=== PATIENT | female | born 1990 | race Caucasian/White ===

== ENCOUNTER → 2016-09-04 | Outpatient (CLI) | payer BC, OTHER ==
[2016-09-08 13:39] LABS: CHLAMYDIA TRACH RNA*** NOT DETECTED (NOT DETECTED); GC (NEIS GONORRHOEAE)RNA** NOT DETECTED (NOT DETECTED)
== END | disposition home or self-care (01) ==
LOC: C.LABSPEC 18:04
PROVIDERS: ATTEND Obstetrics & Gynecology
DX: Z01.419 Encounter for gynecological examination (general) (routine) without abnormal findings (principal); N89.8 Other specified noninflammatory disorders of vagina

== ENCOUNTER → 2017-10-08 | Outpatient (CLI) | payer OTHER | END | disposition home or self-care (01) | LOC: C.PAPS 11:45 | PROVIDERS: ATTEND Physician Assistant | DX: Z12.4 Encounter for screening for malignant neoplasm of cervix (principal); Z11.51 Encounter for screening for human papillomavirus (HPV) ==

== ENCOUNTER 2022-12-22 05:57 | Inpatient (IN) ==
[2022-12-22] MEDS ORDERED: LIDOCAINE 1% LOCAL 20 ML VIAL INFIL PRN (06:36)
[2022-12-22] MEDS ORDERED: OXYTOCIN 30 UNITS/500 ML BAG IV PRN ×3 (06:36→16:06)
[2022-12-22 07:05] LABS: Hematocrit (blood only) 35.7 % (37.0-47.0); Hemoglobin 12.2 g/dl (12.0-16.0); Mean Corpuscular Hemoglobin 28.3 pg (25.0-34.0); Mean Corpuscular Hgb Conc 34.2 g/dL (32.0-36.0); Mean Corpuscular Volume 82.8 fL (80.0-100.0); Mean Platelet Volume 11.7 fL (9.4-12.4); Platelet Count 143 K/uL (130-400); RDW Coefficient of Variation 14.1 % (11.5-14.5); RDW Standard Deviation 41.8 fL (36.4-46.3); Red Blood Count 4.31 M/uL (4.20-5.40); White Blood Count 11.79 K/ul (4.8-10.8)
[2022-12-22] MEDS ORDERED: ePHEDrine sulfate 50 MG/ML AMP ONE (07:48)
[2022-12-22] MEDS ORDERED: SODIUM CHLORIDE 0.9% PF INJ 10 ML VIAL ONE (07:49)
[2022-12-22] MEDS ORDERED: LIDOCAINE 2%/EPINEPHRINE 1:200,000 20 ML PF ONE (07:49)
[2022-12-22] MEDS ORDERED: fentaNYL citrate PF 100 MCG/2 ML VIAL ONE (07:49)
[2022-12-22] MEDS ORDERED: BUPIVACAINE 0.25% PF 30 ML VIAL ONE (07:49)
[2022-12-22] MEDS ORDERED: fentaNYL 2MCG/ML ROPIVACAINE 1.25MG/ML 100 ML BAG EPI ONE (07:50)
[2022-12-22] MEDS: LACTATED RINGER'S 1,000 ML IV PRN ×2 (07:55→09:25)
--- NOTE | 2022-12-22 09:07 | Anesthesiology Consultation ---
Date of Service December 22, 2022 Assessment & Plan Chart Review Chart Review: Acceptable Risk for Surgery, Patient NOT seen in Pre Admission Testing and Acceptable Risk for Labor Epidural Consults Requested none ASA ASA3 Proposed Anesthesia Anesthesia Type: Labor Epidural and CSE History Height/Weight Height: 5 ft 4 in Weight: 110.223 kg Allergies Allergy/AdvReac Type Severity Reaction Status Date / Time No Known Allergies Allergy Verified 12/22/22 06:15 Medications Home Medications Medication Instructions Recorded Confirmed Last Taken 1 tab PO DAILY 11/14/21 12/05/22 12/21/22 Low-Dose Aspirin 81 mg PO 1XD 12/05/22 12/05/22 12/21/22 Active Medications Generic Name Dose Route Start Last Admin Trade Name Freq PRN Reason Stop Dose Admin Lactated Ringer's 1,000 mls @ 125 mls/hr 12/22/22 06:36 12/22/22 08:40 Lr IV 12/24/22 06:35 125 mls/hr .Q8H PRN Infusion L&D Protocol Protocol Past Medical History Medical History Anxiety History of broken finger left index finger morbid obesity anemia Exercise / Class Metabolic Activity II 4-5 Yardwork/Stairs/Walk up hill Past Surgical History Surgical History History of wisdom tooth extraction Past Anesthesia History No Hx of Anesthesia Complications and No Family Hx of Anesthesia Complications History of PONV No Hx of PONV and No Hx of Motion Sickness Social History Smoking Status: Never smoker Do You Dip or Chew Tobacco: No Hx Alcohol Use: No alcohol intake frequency: holidays/special occasions only Hx Substance Use: No substance use type: does not use Physical Exam Vital Signs Last Vital Signs Temp 36.9 C 12/22/22 07:15 Pulse 102 H 12/22/22 07:15 Resp 18 12/22/22 07:15 BP 120/72 12/22/22 07:15 Testing Laboratory Results 12/22/22 06:47 Blood Type O Positive 12/22/22 06:47 Antibody Screen NEGATIVE 12/22/22 06:47
[2022-12-22] MEDS ORDERED: ROPIVACAINE 0.5% PF 5 MG/ML 20 ML VIAL EPI PRN (09:47)
[2022-12-22] MEDS ORDERED: BUPIVACAINE 0.25% PF 30 ML VIAL EPI PRN (09:47)
[2022-12-22] MEDS ORDERED: SODIUM CHLORIDE 0.9% PF INJ 10 ML VIAL EPI PRN (09:47)
[2022-12-22] MEDS ORDERED: diphenhydrAMINE 50 MG/ML VIAL IV PRN (09:47)
[2022-12-22] MEDS ORDERED: NALOXONE HCL 1 MG in SODIUM CHLORIDE 0.9% 1000ML 1,000 ML IV PRN (09:47)
[2022-12-22] MEDS ORDERED: BUPIVACAINE 0.25% PF 30 ML VIAL EPI STA (09:47)
[2022-12-22] MEDS ORDERED: PROMETHAZINE HCL 25 MG in SODIUM CHLORIDE 0.9% 50 ML IV PRN (09:47)
[2022-12-22] MEDS ORDERED: NALOXONE HCL 0.4 MG/1 ML VIAL/CARP IV PRN (09:47)
[2022-12-22] MEDS ORDERED: ONDANSETRON INJ 2 MG/ML 2 ML VIAL IV PRN (09:47)
[2022-12-22] MEDS ORDERED: LIDOCAINE 2%/EPINEPHRINE 1:200,000 20 ML PF EPI STA (09:47)
[2022-12-22] MEDS ORDERED: ePHEDrine sulfate 50 MG/ML AMP IV PRN (09:47)
[2022-12-22] MEDS ORDERED: fentaNYL 2MCG/ML ROPIVACAINE 1.25MG/ML 100 ML BAG EPI PRN (09:47)
[2022-12-22] MEDS ORDERED: fentaNYL citrate PF 100 MCG/2 ML VIAL EPI PRN (09:47)
[2022-12-22] MEDS ORDERED: LIDOCAINE 2% MPF LOCAL 5 ML VIAL EPI PRN (09:47)
[2022-12-22] MEDS ORDERED: fentaNYL citrate PF 100 MCG/2 ML VIAL EPI STA (09:47)
[2022-12-22] MEDS ORDERED: SODIUM CHLORIDE 0.9% PF INJ 10 ML VIAL EPI STA (09:47)
[2022-12-22] MEDS ORDERED: NALBUPHINE HCL INJ 10 MG/ML AMP IV PRN (09:47)
[2022-12-22] MEDS ORDERED: METHYLERGONOVINE MALEATE 0.2 MG/ML AMP ONE (15:33)
[2022-12-22] MEDS ORDERED: bisacodyL 10 MG SUPP PR PRN (16:06)
[2022-12-22] MEDS ORDERED: ACETAMINOPHEN 325 MG TAB PO PRN (16:06)
[2022-12-22] MEDS ORDERED: HYDROCORTISONE ACETATE 25 MG SUPP PR PRN (16:06)
[2022-12-22] MEDS ORDERED: ACETAMINOPHEN W/CODEINE #3 1 TAB PO PRN (16:06)
[2022-12-22] MEDS ORDERED: BENZOCAINE 20% AER SPR 82.5 GM CAN EXT PRN (16:06)
[2022-12-22] MEDS ORDERED: oxyCODONE/ACETAMINOPHEN 5mg/325mg TAB PO PRN (16:06)
[2022-12-22] MEDS ORDERED: METHYLERGONOVINE MALEATE 0.2 MG/ML AMP IM ONE (16:06)
[2022-12-22] MEDS ORDERED: DIPHTHERIA/TETANUS/PERTUSSIS Vaccine (Tdap, Age 7+yrs) 0.5mL SYR/VL IM ONE (16:06)
--- NOTE | 2022-12-22 16:10 | Anesthesia Procedure Note ---
Date of Service December 22, 2022 Anesthesia Post Epidural Note Vital Signs Vital Signs: Temp Pulse Resp BP Pulse Ox 37.0 C 123 H 18 135/66 96 12/22/22 15:24 12/22/22 15:25 12/22/22 15:24 12/22/22 15:24 12/22/22 15:25 Pain Intensity Abdomen: Pain Intensity: 6 Notes Mental Status: alert / awake / arousable Nausea / Vomiting: adequately controlled Pain: adequately controlled Airway Patency, RR, SpO2: stable & adequate BP & HR: stable & adequate Hydration State: stable & adequate Neuraxial Anesthesia: was administered and sensory block is resolving Anesthetic Complications: no major complications apparent Epidural: Removed without complications and With tip intact
[2022-12-22] MEDS: IBUPROFEN 600 MG TAB PO PRN ×2 (17:44→23:30)
[2022-12-22] MEDS: DOCUSATE SODIUM 100 MG CAP PO SCH (20:35)
--- NOTE | 2022-12-22 20:41 | Delivery Summary ---
DELIVERY NOTE The patient is a 1, para 1. She is in good general health with her blood type O positive, gr oup B strep negative. Her due date 12/30/2022. has been complicated by bleeding throughou t , first trimester, mid trimester and bleeding off and on right up until she came into [facility]. Due to the risk for premature labor and delivery, she has had two sets of steroids during her p regnancy in anticipation of a possible premature delivery. She was ultrasound several times. No danilo son for the bleeding could be identified. She came in active labor. She was about 5 cm dilated, hea d was high. She walked for a while, at her request and eventually she received epidural for pain con trol, obtained good relief from the epidural. Membranes were ruptured surgically. At this time, flu id was clear, and she was started on IV Pitocin. Pitocin was gradually increased and although the he ad started in a very high position, it came down nicely and she pushed for under an hour and she [place] a live female . There were a few heart rate decelerations prior to delivery. At the time of delivery, she had a cord around both the head and the body. The infant was delivered with the cor d intact and we allowed the cord to pulse for over a minute. The infant revived nicely after pulsati ng for about a minute and 15 seconds. The cord was clamped, cut by the father. Cord blood was taken . With IV Pitocin running, the placenta was removed intact. She also received an injection of IM Me thergine into her upper thigh. Inspection revealed a first-degree laceration at about 7 o'clock on t he vaginal opening. The upper extent of the vaginal laceration was identified and it was approximate d with a running 2-0 Vicryl. There was also a vaginal hematoma forming at about 10 o'clock on the pa tient's left side and this was cut with the scissors, evacuated and then it was sewn with a wide sutu res of a running 2-0 Vicryl. Following this, it was palpated, the hematoma had been obliterated. Th ere was no reaccumulation. The patient tolerated the procedure well. Estimated blood loss was 200 mL and placenta was sent for exam due to the bleeding. Job ID: [id number]
[2022-12-23] MEDS: IBUPROFEN 600 MG TAB PO PRN ×4 (03:46→19:37)
[2022-12-23 06:00] LABS: Hematocrit (blood only) 33.4 % (37.0-47.0); Hemoglobin 11.3 g/dl (12.0-16.0); Mean Corpuscular Hemoglobin 28.6 pg (25.0-34.0); Mean Corpuscular Hgb Conc 33.8 g/dL (32.0-36.0); Mean Corpuscular Volume 84.6 fL (80.0-100.0); Mean Platelet Volume 11.8 fL (9.4-12.4); Platelet Count 132 K/uL (130-400); RDW Coefficient of Variation 14.2 % (11.5-14.5); RDW Standard Deviation 43.6 fL (36.4-46.3); Red Blood Count 3.95 M/uL (4.20-5.40)
[2022-12-23] MEDS: PRENATAL VITAMIN 1 TAB PO SCH (07:22)
[2022-12-23] MEDS: DOCUSATE SODIUM 100 MG CAP PO SCH ×2 (07:23→19:37)
--- NOTE | 2022-12-23 09:08 | Obstetrical Progress Note ---
Date of Service December 23, 2022 Assessment & Plan Admission and Anticipated Discharge Date Admission Date: December 22, 2022 Subjective abdomen soft and non tender no calf tenderness ambulating well vaginal bleeding scant hgb 11.3 Results & Data Vital Signs (Past 12 Hours) Vital Signs Temp Pulse Resp BP Pulse Ox O2 Del Method 12/23/22 07:15 36.4 C L 80 16 109/74 97 Room Air 12/23/22 03:45 36.3 C L 69 17 123/84 96 Room Air 12/22/22 23:25 36.6 C 73 17 121/71 95 Room Air
[2022-12-23] MEDS ORDERED: CALCIUM CARBONATE 500 MG CHEWABLE TAB PO ONE (10:32)
[2022-12-23] MEDS ORDERED: bisacodyL 5 MG TABEC PO SCH (20:00)
[2022-12-24] MEDS: IBUPROFEN 600 MG TAB PO PRN ×2 (01:35→07:57)
[2022-12-24 06:31] LABS: Hematocrit (blood only) 33.5 % (37.0-47.0); Hemoglobin 11.5 g/dl (12.0-16.0)
[2022-12-24] MEDS: DOCUSATE SODIUM 100 MG CAP PO SCH (07:57)
[2022-12-24] MEDS: PRENATAL VITAMIN 1 TAB PO SCH (07:57)
--- NOTE | 2022-12-24 09:07 | Obstetrical Progress Note ---
Date of Service December 24, 2022 Assessment & Plan Admission and Anticipated Discharge Date Admission Date: December 22, 2022 Subjective abdomen soft and non tender no calf tenderness ambulating well vaginal bleeding scant hgb 11.5 Results & Data Vital Signs (Past 12 Hours) Vital Signs Temp Pulse Pulse Resp BP Pulse Ox O2 Del Method 12/24/22 08:46 36.5 C 77 18 106/67 96 12/24/22 07:25 36.5 C 77 18 106/67 96 Room Air 12/23/22 22:10 36.4 C L 78 16 116/76 95 Room Air
--- NOTE | 2022-12-26 08:41 | Coding Query ---
CODING QUERY To promote full compliance with coding requirements relating to patient care, provider participation is requested in all cases of veterinary practitioner uncertainty. Please assist us with the question(s) below: Coding Question(s): Please specify weeks of gestation on admission. Thank you. Physician's Response(s): 39 weeks 2 days Thank you Bernarda Cline Principal Diagnosis: "that condition established after study, to be chiefly responsible for occasioning the admission of the patient to the hospital for care." Co-Existing Principal Diagnosis: "when two or more diagnoses equally meet the criteria for principal diagnosis as determined by the circumstances of admission, diagnostic work up, and/or therapy provided, and the Alphabetic Index, Tabular List, or another coding guideline does not provide sequencing direction, any one of the diagnoses may be sequenced first." "When the physician has documented what appears to be a current diagnosis in the body of the record, but has not included the diagnosis in the final diagnostic statement, the physician should be asked whether the diagnosis should be added." (Source Coding [facility] 2 QTR90. p3-4) KEN
== END 2022-12-24 13:10 | disposition home or self-care (01) | DRG 806 ==
LOC: OPB 05:57 → 4S1 06:02 → 4E2 18:09